=== PATIENT | male | born 1965 | race Caucasian/White ===

== ENCOUNTER 2016-08-29 11:38 | Emergency (ER) | payer OTHER ==
[~2016-08-29] VITALS: Ht 177.8 cm; Wt 109.5 kg
[~2016-08-29 11:38] MED LIST: CIPRO500 MG PO; CORTIZONE-1028 GM TP; COUGH & COLD S237 ML; DILAUDID2 MG PO; ENDOCET 5-3251 EACH; FLOMAX0.4 MG PO; LUMIGAN 0.50 DROP/22 BOTH EYES; MOTRIN600 MG PO; NO HOME MEDS; PERCOCET 10/1 TABLET PO; PERCOCET 5/31 TABLET PO; PREDNISONE20 MG PO; TOBREX5 ML RIGHT EYE; TYLENOL WITH C1 EACH PO; ZOFRAN ODT4 MG PO; ZOFRAN4 MG PO
[2016-08-29 12:31] LABS: EOSINOPHIL (%) 0.5 % (0-5); HEMATOCRIT 42.2 % (38.0-50.0); IMMATURE GRANULOCYTE (%) 0.6 % (0.0-0.7); INSTRUMENT ABS NEUTROPHIL CT 4.8 K/uL; LYMPHOCYTE COUNT 0.6 K/uL (1.0-2.8); MCH 30.3 PG (29.0-34.0); MCHC 34.4 G/DL (30.0-36.0); MCV 88.1 FL (86-99); MONOCYTE (%) 15.8 % (3-12); NEUTROPHIL (%) 73.1 % (45-76); NEUTROPHIL COUNT 4.8 K/uL (1.8-6.4); PLATELET COUNT 186 K/uL (156-360); RBC DIS.WIDTH-CV 11.6 % (11.8-14.6); RBC DIS.WIDTH-SD 37.4 % (39-53); RED BLOOD COUNT 4.79 M/uL (4.00-5.50); WHITE BLOOD COUNT 6.5 K/uL (4.1-10.2)
[2016-08-29 12:43] LABS: CHLORIDE 105 mEq/L (99-109); POTASSIUM 4.2 mEq/L (3.7-5.4); SODIUM 138 mEq/L (136-147)
[2016-08-29 12:45] LABS: GLUCOSE 107 mg/dL (70-99)
[2016-08-29 12:47] LABS: ANION GAP 9 MEQ/L (2-14)
[2016-08-29 12:49] LABS: GFR ESTIMATE (CALCULATED) > 59 mL/min/
[2016-08-29 12:50] LABS: UREA NITROGEN (BUN) 17 mg/dL (9-23)
[2016-08-29 13:30] LABS: INFLUENZA A VIRAL ANTIGEN NEGATIVE; INFLUENZA B VIRAL ANTIGEN POSITIVE
[2016-08-29] MEDS ORDERED: TAMIFLU75 MG PO (13:44)
[2016-08-29 14:19] VITALS: BP 119/88
== END 2016-08-29 14:19 | disposition home or self-care (01) ==
LOC: EME 11:38
PROVIDERS: Emergency Medicine
DX: J10.1 Influenza due to other identified influenza virus with other respiratory manifestations (principal); Z87.442 Personal history of urinary calculi
CPT/HCPCS: 71020; 80048; 85025; 87502; 94640; 99281; 99285